=== PATIENT | female | born 1970 | race Caucasian/White ===

== ENCOUNTER 2020-11-14 06:21 | Day surgery (SDC) | payer BC ==
[2020-11-13 10:12] VITALS: BMI 33.3
[2020-11-14] MEDS ORDERED: Midazolam HCl 2 mg/2 ml Vial ONE (08:08)
[2020-11-14] MEDS ORDERED: Scopolamine 1.5 mg/72 hour Patch ONE (08:08)
[2020-11-14] MEDS ORDERED: Thrombin 5000 UNITS/5 ML VIAL ONE (08:11)
[2020-11-14] MEDS ORDERED: Fentanyl 100 MCG/2 ML VIAL ONE (08:34)
[2020-11-14] MEDS ORDERED: Dexamethasone 20 MG/5 ML VIAL ONE (08:41)
[2020-11-14] MEDS ORDERED: Ondansetron PF 4 MG/2 ML Vial ONE (08:41)
[2020-11-14] MEDS ORDERED: Rocuronium Bromide 10 MG/ML (10ML VIAL) ONE (08:41)
[2020-11-14] MEDS ORDERED: Metoclopramide HCl 10 MG/2 ML VIAL ONE (08:41)
[2020-11-14] MEDS ORDERED: Lidocaine 1% PF 5 ML VIAL ONE (08:41)
[2020-11-14] MEDS ORDERED: PROPOFOL 200 MG/20 ML VIAL ONE (08:41)
[2020-11-14] MEDS ORDERED: HYDROmorphone 2 MG/ML VIAL ONE (09:23)
[2020-11-14 09:35] LABS: #Basophils 0.1 thou/uL (0.0-0.2); #Eosinphils 0.1 thou/uL (0.0-0.7); #Lymphocytes 2.6 thou/uL (1.20-3.40); #Monocytes 0.5 thou/uL (0.11-0.59); #Neutrophils 3.2 thou/uL (1.40-6.50); %Basophils 0.9 % (0.0-1.0); %Eosinophils 1.4 % (0.0-10.0); %Lymphocytes 40.2 % (21.0-51.0); %Monocytes 7.7 % (0.0-10.0); %Neutrophils 49.8 % (42.0-75.0); Hemoglobin 13.9 g/dL (12.0-16.0); Mean Corpuscular HGB CONC 34.2 g/dL (32.0-36.0); Mean Corpuscular Hemoglobin 31.1 pg (27.0-31.0); Mean Corpuscular Volume 90.9 fL (78.0-98.0); Mean Platelet Volume 8.4 fL (7.4-10.4); Platelet Count 225 thou/uL (130-400); RBC Distribution Width 12.7 % (11.5-14.5); Red Blood Cell (RBC) Count 4.48 mill/uL (4.20-5.40); White Blood Cell (WBC) Count 6.4 thou/uL (4.8-10.8)
[2020-11-14] MEDS ORDERED: SUGAMMADEX SODIUM 200 MG/2 ML VIAL ONE (09:51)
[2020-11-14 09:56] LABS: Anion Gap 13 mmol/L (10-20); BUN (Urea Nitrogen) 11 mg/dL (7.0-18.7); Calc. Creatinine Clearance 124 mL/min (70-130); Calcium 9.4 mg/dL (7.8-10.44); Carbon Dioxide 27 mmol/L (22-29); Chloride 104 mmol/L (98-107); Glucose 135 mg/dL (70-105); Sodium 140 mmol/L (136-145)
[2020-11-14] MEDS ORDERED: Promethazine HCl 25 MG/ML VIAL ONE (12:37)
== END 2020-11-14 14:35 | disposition home or self-care (01) ==
LOC: SDC 06:21
PROVIDERS: ATTEND Neurological Surgery
PROC: 0RG20A0 Fusion of 2 or more Cervical Vertebral Joints with Interbody Fusion Device, Anterior Approach, Anterior Column, Open Approach (ICD-10-PCS; principal; 2020-11-14)
PROC: 0RT30ZZ Resection of Cervical Vertebral Disc, Open Approach (ICD-10-PCS; principal; 2020-11-14)
DX: M54.12 Radiculopathy, cervical region (principal); M25.78 Osteophyte, vertebrae; M48.02 Spinal stenosis, cervical region; G89.4 Chronic pain syndrome; I10 Essential (primary) hypertension; J30.2 Other seasonal allergic rhinitis; M19.90 Unspecified osteoarthritis, unspecified site; E78.5 Hyperlipidemia, unspecified; G47.30 Sleep apnea, unspecified; Z79.899 Other long term (current) drug therapy; Z91.048 Other nonmedicinal substance allergy status
CPT/HCPCS: 36415; 76000; 80048; 85025; 93005; 93010; C1713; C1776; J0690; J1100; J1170; J2250; J2405; J2550; J2704; J2765; J3010

== ENCOUNTER 2021-05-09 14:26 | Outpatient (CLI) | payer BC ==
[2021-05-09 16:08] LABS: #Basophils 0.1 10x3/uL (0.0-0.2); #Eosinphils 0.1 10x3/uL (0.0-0.5); #Monocytes 0.7 10x3/uL (0.0-1.1); #Neutrophils 4.5 10x3/uL (1.5-8.4); %Basophils 0.7 % (0.0-2.0); %Eosinophils 1.1 % (0.0-6.0); %Lymphocytes 46.2 % (18.0-47.0); %Monocytes 6.8 % (0.0-10.0); %Neutrophils 44.8 % (40.0-75.0); Hemoglobin 14.7 g/dL (12.0-15.5); Mean Corpuscular HGB CONC 33.3 g/dL (32.0-36.0); Mean Corpuscular Hemoglobin 29.2 pg (27.0-33.0); Mean Corpuscular Volume 87.7 fl (81.6-98.3); Mean Platelet Volume 10.7 fl (7.4-10.4); Platelet Count 317 10x3/uL (150-450); Red Blood Cell (RBC) Count 5.04 10x6/uL (3.90-5.03)
[2021-05-09 16:09] LABS: Bilirubin Neg (Negative); Blood, Urine Negative (Negative); Clarity Clear (Clear); Glucose, Urine (Dipstick) Normal (Negative); Ketone, Urine Negative (Negative); Leukocyte Negative (Negative); Nitrite Negative (Negative); Protein, Urine (Dipstick) Negative (Neg-Trace); Specific Gravity, Urine 1.005 (1.002-1.036); Urobilinogen Normal mg/dL (Less than 2)
[2021-05-10 07:58] LABS: SARS-CoV-2 PCR by NAA Not Detected (NotDetected)
== END 2021-05-09 14:27 | disposition home or self-care (01) ==
LOC: LABBT 14:26
PROVIDERS: ATTEND Orthopaedic Surgery Hand Surgery
DX: Z01.812 Encounter for preprocedural laboratory examination (principal); Z20.822 Contact with and (suspected) exposure to COVID-19
CPT/HCPCS: 81003; 85025; U0003; U0005

== ENCOUNTER 2021-05-14 07:08 | Observation (INO) | payer BC ==
[2021-05-14] MEDS ORDERED: ceFAZolin 2 GM/DEX 5% 100 ML BAG ONE (10:45)
[2021-05-14] MEDS ORDERED: Neomycin-Polymyxin 1 ML AMP ONE (11:50)
[2021-05-14] MEDS ORDERED: Betamet Acet/Betamet Na Ph 30 MG/5 ML VIAL ONE (11:50)
[2021-05-14] MEDS ORDERED: Bacitracin Zinc Ointment 30 gm TUBE ONE (11:50)
[2021-05-14] MEDS ORDERED: Bupivacaine PF 0.5% 30 ML VIAL ONE (11:50)
[2021-05-14] MEDS ORDERED: Scopolamine 1.5 mg/72 hour Patch ONE (12:01)
[2021-05-14] MEDS ORDERED: Dexmedetomidine 200 MCG/2 ML VIAL ONE (12:06)
[2021-05-14] MEDS ORDERED: Fentanyl 250 MCG/5 ML VIAL ONE (12:06)
[2021-05-14] MEDS ORDERED: Midazolam HCl 2 mg/2 ml Vial ONE (12:06)
[2021-05-14] MEDS ORDERED: Ketamine 50 MG/ML (10ML VIAL) ONE (12:07)
[2021-05-14] MEDS ORDERED: diphenhydrAMINE 50 MG/ML VIAL ONE (12:40)
[2021-05-14] MEDS ORDERED: Lidocaine 1% PF 5 ML VIAL ONE (12:40)
[2021-05-14] MEDS ORDERED: Dexamethasone 20 MG/5 ML VIAL ONE (12:40)
[2021-05-14] MEDS ORDERED: PROPOFOL 200 MG/20 ML VIAL ONE (12:40)
[2021-05-14] MEDS ORDERED: Ondansetron PF 4 MG/2 ML Vial ONE (12:40)
[2021-05-14] MEDS ORDERED: Phenylephrine 10 MG/ML VIAL ONE (12:40)
[2021-05-14] MEDS ORDERED: Ketorolac Tromethamine 30 MG/ML VIAL ONE (12:40)
[2021-05-14] MEDS ORDERED: Metoclopramide HCl 10 MG/2 ML VIAL ONE (12:40)
[2021-05-14] MEDS ORDERED: EPINEPHrine 1 MG/ML AMP ONE (13:04)
[2021-05-14] MEDS ORDERED: Acetaminophen 325 MG TAB PO PRN (16:53)
[2021-05-14] MEDS ORDERED: Fentanyl 100 MCG/2 ML VIAL SLOW IVP PRN (16:53)
[2021-05-14] MEDS ORDERED: Morphine 4 MG/ML VIAL SLOW IVP PRN (16:53)
[2021-05-14] MEDS ORDERED: HYDROcodone/Acetaminophen 5/325 mg Tablet PO PRN (16:53)
[2021-05-14] MEDS ORDERED: traMADol HCl 50 MG TAB PO PRN (16:53)
[2021-05-14] MEDS ORDERED: Meperidine HCl/PF 25 MG/ML VIAL IM PRN (16:57)
[2021-05-14] MEDS ORDERED: Communication Order-Pharmacy FS SCH (17:00)
[2021-05-14] MEDS ORDERED: TETANUS AND DIPHTHERIA TOX/PF 0.5 ML DISP.SYRIN IM SCH (17:00)
[2021-05-14 18:36] VITALS: BMI 38.0
[2021-05-14] MEDS: Sodium Chloride 0.9% 100 ML IV SCH ×6 (19:27→23:11)
[2021-05-14] MEDS ORDERED: Vancomycin HCl 1.75 GM in Sodium Chloride 0.9% 500 ML IVPB SCH (21:00)
[2021-05-14] MEDS: Aspirin 81 mg Enteric Coated Tablet PO SCH (21:00)
[2021-05-14] MEDS ORDERED: Vancomycin 1 GM in Premix Bag 1 BAG IVPB SCH (21:00)
[2021-05-14] MEDS: Ketorolac Tromethamine 30 MG/ML VIAL IVP SCH (21:50)
[2021-05-14] MEDS: Sodium Chloride 0.9% 1,000 ML IV SCH (22:15)
[2021-05-15] MEDS: Ketorolac Tromethamine 30 MG/ML VIAL IVP SCH ×2 (03:07→08:43)
[2021-05-15] MEDS: Aspirin 81 mg Enteric Coated Tablet PO SCH (08:43)
[2021-05-15] MEDS ORDERED: Ezetimibe 10 MG TAB PO SCH (09:00)
[2021-05-15] MEDS ORDERED: ALLERGY PILL PO SCH (09:00)
[2021-05-15] MEDS ORDERED: CRANBERRY FRUIT EXTRACT PO SCH (09:00)
[2021-05-15] MEDS ORDERED: ZINC GLUCONATE PO SCH (09:00)
[2021-05-15] MEDS ORDERED: Cholecalciferol 1,000 UNITS (25 MCG) TAB PO SCH (09:00)
[2021-05-15] MEDS ORDERED: Fish Oil 1,000 MG CAP PO SCH (09:00)
[2021-05-15] MEDS ORDERED: MILK THISTLE PO SCH (09:00)
[2021-05-15] MEDS: Sodium Chloride 0.9% 1,000 ML IV SCH (10:05)
[2021-05-15 11:59] VITALS: BP 118/77; TEMP 97.7
== END 2021-05-15 14:35 | disposition home or self-care (01) ==
LOC: SDC 07:08 → SURG A 16:58
PROVIDERS: ADMIT Orthopaedic Surgery Hand Surgery; ATTEND Orthopaedic Surgery Hand Surgery
PROC: 0RBN4ZZ Excision of Right Wrist Joint, Percutaneous Endoscopic Approach (ICD-10-PCS; principal; 2021-05-14)
PROC: 0LN70ZZ Release Right Hand Tendon, Open Approach (ICD-10-PCS; 2021-05-14)
PROC: 01N50ZZ Release Median Nerve, Open Approach (ICD-10-PCS; 2021-05-14)
PROC: 01N60ZZ Release Radial Nerve, Open Approach (ICD-10-PCS; 2021-05-14)
PROC: 0LQ30ZZ Repair Right Upper Arm Tendon, Open Approach (ICD-10-PCS; 2021-05-14)
PROC: 0PBF0ZZ Excision of Right Humeral Shaft, Open Approach (ICD-10-PCS; 2021-05-14)
DX: G56.31 Lesion of radial nerve, right upper limb (principal); M77.11 Lateral epicondylitis, right elbow; M65.311 Trigger thumb, right thumb; G56.01 Carpal tunnel syndrome, right upper limb; M65.88 Other synovitis and tenosynovitis, other site; I10 Essential (primary) hypertension; G89.29 Other chronic pain; M19.90 Unspecified osteoarthritis, unspecified site; Z79.899 Other long term (current) drug therapy; Z91.048 Other nonmedicinal substance allergy status; Z98.890 Other specified postprocedural states
CPT/HCPCS: 36415; 82565; 96374; 96375; 96376; C1889; G0378; J0171; J0702; J1100; J1200; J1885; J2250; J2370; J2405; J2704; J2765; J3010; J3370; J7030; J7050; S0020